=== PATIENT | female | born 1990 | race Caucasian/White ===

== ENCOUNTER → 2016-09-27 | Outpatient (CLI) | payer OTHER ==
[2016-09-27 14:35] LABS: ABSOLUTE NEUTROPHILS 2.7 thou/uL (1.4-8.2); HEMATOCRIT 41.4 % (37.0-47.0); HEMOGLOBIN 14.3 gm/dL (12.0-15.0); LYMPHOCYTES 36.9 % (24.0-44.0); MCH 30.7 pg (26.0-34.0); MCHC 34.5 g/dL (28.0-37.0); MONOCYTES 6.2 % (1.0-8.0); PLATELET COUNT 253 thou/uL (150-400); POLYS 53.9 % (36.0-66.0); RBC 4.66 mil/uL (4.20-5.00); RDW 12.7 % (10.5-14.5)
[2016-09-27 14:36] LABS: MANUAL DIFF NO
[2016-09-27 14:44] LABS: CREATININE 0.6 mg/dL (0.6-1.0); POTASSIUM 3.7 mmol/L (3.5-5.1)
[2016-09-27 14:49] LABS: ALBUMIN 4.1 g/dL (3.4-5.0); TOTAL BILIRUBIN 0.7 mg/dL (<0.1-1.0); TOTAL PROTEIN 7.7 g/dL (6.4-8.2)
[2016-09-27 21:11] LABS: CORTISOL RANDOM 4.4 ug/dL (()); FREE T4 1.12 ng/dL (0.82-1.77); FSH 7.4 mIU/mL (()); LUTEINIZING HORMONE (LH) 15.1 mIU/mL (()); PROGESTERONE 0.2 ng/mL (()); PROLACTIN 9.5 ng/mL (4.8-23.3)
[2016-09-28 02:11] LABS: 25-HYDROXY TOTAL 10.1 ng/mL (30.0-100.0)
[2016-09-28 15:10] LABS: THYROGLOBULIN 8.5 ng/mL (1.5-38.5)
== END ==
LOC: LABMALL 12:27
PROVIDERS: Family Medicine
DX: N91.2 Amenorrhea, unspecified (principal); E55.9 Vitamin D deficiency, unspecified